=== PATIENT | male | born 1975 | race Caucasian/White ===

== ENCOUNTER 2023-06-26 19:18 | Emergency (ER) | payer OTHER ==
[~2023-06-26] VITALS: Ht 157.5 cm; Wt 72.6 kg
[2023-06-26 19:35] VITALS: BP 129/92; PULSE 78; RESP 16; TEMP 97.8; O2SAT 100
[2023-06-26] MEDS ORDERED: CIPR7.5D2 LEFT EAR (20:17)
== END 2023-06-26 20:22 | disposition home or self-care (01) ==
LOC: MED 19:18
DX: H60.93 Unspecified otitis externa, bilateral (principal); Z79.899 Other long term (current) drug therapy
CPT/HCPCS: 99283